=== PATIENT | female | born 1940 | race Two or more races ===

== ENCOUNTER 2022-10-10 15:14 | Inpatient (IN) | payer OTHER, BC ==
[~2022-10-10] VITALS: Ht 154.9 cm; Wt 59.9 kg
[2022-10-10 15:19] VITALS: BP_SYST 141; PULSE 82; RESP 19; TEMP 98; O2SAT 98
[2022-10-10 16:30] LABS: BASOPHILS % (AUTO) 0.6 % (0.0-2.0); EOSINOPHILS # (AUTO) 0.4 K/uL (0.0-0.4); EOSINOPHILS % (AUTO) 7.6 % (0.0-4.0); HEMATOCRIT 29.5 % (36-48); HEMOGLOBIN 9.4 g/dL (12.0-16.0); LYMPHOCYTES # (AUTO) 1.2 K/uL (1.0-5.5); LYMPHOCYTES % (AUTO) 24.8 % (20.5-51.5); MEAN CORPUSCULAR HEMOGLOBIN 26 pg (27-31); MEAN CORPUSCULAR HGB CONC 32 % (32-36); MEAN CORPUSCULAR VOLUME 81 fL (79.0-98.0); MONOCYTES # (AUTO) 0.7 K/uL (0.0-1.0); MONOCYTES % (AUTO) 13.6 % (1.7-9.3); NEUTROPHILS # (AUTO) 2.6 K/uL (1.8-7.7); NEUTROPHILS % (AUTO) 53.4 % (40.0-70.0); PLATELET COUNT (AUTO) 211 K/uL (130-430); RED BLOOD CELL COUNT(AUTO) 3.63 MIL/uL (4.2-6.2); RED CELL DISTRIBUTION WIDTH 16.3 % (9.0-15.0)
[2022-10-10] MEDS ORDERED: ACET-73 PO (16:32)
[2022-10-10] MEDS ORDERED: AMLO5TAB4 PO (16:32)
[2022-10-10] MEDS ORDERED: MULT-300 PO (16:32)
[2022-10-10] MEDS ORDERED: SENN8.6T19 PO (16:32)
[2022-10-10] MEDS ORDERED: LEVO150T8 PO (16:32)
[2022-10-10] MEDS ORDERED: MOM PO (16:32)
[2022-10-10] MEDS ORDERED: IRBE150T48 PO (16:32)
[2022-10-10] MEDS ORDERED: HYDR-3917 PO (16:32)
[2022-10-10] MEDS ORDERED: METO-442 PO (16:32)
[2022-10-10] MEDS ORDERED: POLY30DR11 EACH EYE (16:32)
[2022-10-10] MEDS ORDERED: NITSL SL (16:32)
[2022-10-10] MEDS ORDERED: FAMO20TA8 PO (16:32)
[2022-10-10] MEDS ORDERED: APIX2.5T PO (16:32)
[2022-10-10] MEDS ORDERED: ACET325T PO (16:32)
[2022-10-10] MEDS ORDERED: DOCU-144 PO (16:32)
[2022-10-10 17:04] LABS: INR 1.2 (0.8-1.2); PROTHROMBIN TIME 12.5 SECS (9.5-12.5)
[2022-10-10 17:19] LABS: ALANINE AMINOTRANSFERASE 22 U/L (12-78); ALBUMIN 2.9 g/dL (3.4-4.8); ANION GAP 5 (5-15); CALCIUM 11.8 mg/dL (8.4-11.0); CARBON DIOXIDE 27 mmol/L (23-29); CHLORIDE 100 mmol/L (98-107); CREATININE 1.24 mg/dL (0.55-1.30); GLUCOSE 111 mg/dL (74-106); SODIUM SERUM 132 mmol/L (136-145); TOTAL BILIRUBIN 0.4 mg/dL (0.0-1.0); TOTAL PROTEIN, SERUM 6.5 g/dL (6.4-8.3); UREA NITROGEN, BLOOD 24 mg/dL (8-21)
[2022-10-10 17:34] LABS: ASPARTATE AMINOTRANSFERASE 41 U/L (10-37)
[2022-10-10] MEDS ORDERED: NACL 0.9% 1,000 ML IV ONE (18:00)
[2022-10-10 18:53] LABS: BILIRUBIN,URINE NEGATIVE (NEGATIVE); BLOOD, URINE TRACE (NEGATIVE); CLARITY/URINE CLOUDY (CLEAR); COLOR,URINE YELLOW (YELLOW); GLUCOSE,URINE NEGATIVE (NEGATIVE); KETONES,URINE NEGATIVE (NEGATIVE); LEUKOCYTE ESTERASE ,URINE 3+ (NEGATIVE); PROTEIN URINE 2+ (NEGATIVE)
[2022-10-10 18:54] LABS: NITRITE, URINE POSITIVE (NEGATIVE); UROBILINOGEN,URINE 0.2 (0.2-1.0)
[2022-10-10 18:55] LABS: BACTERIA,URINE MANY /HPF (None Seen); MUCUS,URINE 1+ /LPF (None Seen); RBC,URINE 0-3 /HPF (0-3); WBC,URINE >100 /HPF (0-3)
[2022-10-10 18:56] LABS: URINE AMORPHOUS URATE 3+ /HPF (None Seen)
[2022-10-10] MEDS ORDERED: cefTRIAXone 1 GM IVPB PREMIX 50 ML IV ONE (19:00)
[2022-10-10] MEDS ORDERED: MAGNESIUM SULFATE 50 ML IV PRN (20:45)
[2022-10-10] MEDS ORDERED: LORazepam 2 MG/ML VIAL IVP PRN (20:45)
[2022-10-10] MEDS ORDERED: ACETAMINOPHEN 325 MG TABLET PO PRN (20:45)
[2022-10-10] MEDS ORDERED: DOCUSATE SODIUM 100 MG CAPSULE PO PRN (20:45)
[2022-10-10] MEDS ORDERED: MUPIROCIN 2% TOPICAL OINTMENT 22 GM NS PRN (20:45)
[2022-10-10] MEDS ORDERED: MORPHINE 2 MG/ML INJ. SYRINGE IVP PRN (20:45)
[2022-10-10] MEDS ORDERED: ZOLPIDEM TARTRATE 5 MG TABLET PO PRN (20:45)
[2022-10-10] MEDS ORDERED: POTASSIUM CHLORIDE 20 MEQ TAB.PRT.SR PO PRN (20:45)
[2022-10-10] MEDS ORDERED: ONDANSETRON HCL 4 MG/2 ML VIAL IVP PRN (20:45)
[2022-10-10] MEDS ORDERED: NALOXONE HCL 0.4 MG/ML AMP (NARCAN) IVP PRN ×2 (20:45)
[2022-10-10] MEDS ORDERED: IRBESARTAN 150 MG TABLET (AVAPRO) PO SCH (21:00)
[2022-10-10] MEDS: NACL 0.9% 1,000 ML IV SCH (21:16)
[2022-10-10] MEDS: LOSARTAN POTASSIUM 50 MG TABLET (COZAAR) PO SCH (21:17)
[2022-10-10] MEDS: METOPROLOL TARTRATE 50 MG TABLET PO SCH (21:18)
[2022-10-10] MEDS: APIXABAN 2.5 MG TABLET PO SCH (21:18)
[2022-10-11] VITALS (7 sets, daily range): BP systolic 134–181; PULSE 59–70; RESP 16–20; TEMP 97.2–99.2; O2SAT 96–100
[2022-10-11] MEDS: ACETAMINOPHEN 325 MG TABLET PO PRN (00:26)
[2022-10-11 06:54] LABS: BASOPHILS % (AUTO) 0.4 % (0.0-2.0); EOSINOPHILS # (AUTO) 0.3 K/uL (0.0-0.4); EOSINOPHILS % (AUTO) 5.2 % (0.0-4.0); HEMATOCRIT 30.4 % (36-48); HEMOGLOBIN 9.7 g/dL (12.0-16.0); LYMPHOCYTES # (AUTO) 0.6 K/uL (1.0-5.5); LYMPHOCYTES % (AUTO) 10.4 % (20.5-51.5); MEAN CORPUSCULAR HEMOGLOBIN 26 pg (27-31); MEAN CORPUSCULAR HGB CONC 32 % (32-36); MEAN CORPUSCULAR VOLUME 81 fL (79.0-98.0); MONOCYTES # (AUTO) 0.4 K/uL (0.0-1.0); MONOCYTES % (AUTO) 7.4 % (1.7-9.3); NEUTROPHILS # (AUTO) 4.4 K/uL (1.8-7.7); NEUTROPHILS % (AUTO) 76.6 % (40.0-70.0); PLATELET COUNT (AUTO) 187 K/uL (130-430); RED BLOOD CELL COUNT(AUTO) 3.74 MIL/uL (4.2-6.2); RED CELL DISTRIBUTION WIDTH 16.3 % (9.0-15.0); WHITE BLOOD COUNT (AUTO) 5.8 K/uL (4.8-10.8)
[2022-10-11] MEDS ORDERED: LEVOTHYROXINE SODIUM 0.15 MG TABLET PO SCH (07:00)
[2022-10-11 07:19] LABS: ANION GAP 7 (5-15); CALCIUM 11.1 mg/dL (8.4-11.0); CARBON DIOXIDE 26 mmol/L (23-29); CHLORIDE 104 mmol/L (98-107); CREATININE 1.16 mg/dL (0.55-1.30); GLUCOSE 101 mg/dL (74-106); SODIUM SERUM 137 mmol/L (136-145); UREA NITROGEN, BLOOD 21 mg/dL (8-21)
[2022-10-11] MEDS: amLODIPine BESYLATE 5 MG TABLET PO SCH (10:54)
[2022-10-11] MEDS: APIXABAN 2.5 MG TABLET PO SCH ×2 (10:55→21:12)
[2022-10-11] MEDS: NACL 0.9% 1,000 ML IV SCH ×2 (11:04→22:43)
[2022-10-11] MEDS: LOSARTAN POTASSIUM 50 MG TABLET (COZAAR) PO SCH (20:59)
[2022-10-11] MEDS ORDERED: cefTRIAXone 1 GM in D5W 50 ML IV SCH (21:00)
[2022-10-11] MEDS: METOPROLOL TARTRATE 50 MG TABLET PO SCH (21:00)
[2022-10-11] MEDS: MORPHINE 2 MG/ML INJ. SYRINGE IVP PRN (22:51)
[2022-10-12] VITALS (7 sets, daily range): BP systolic 124–168; PULSE 60–85; RESP 15–20; TEMP 97.9–99.1; O2SAT 95–100
[2022-10-12 06:53] LABS: BASOPHILS % (AUTO) 0.4 % (0.0-2.0); EOSINOPHILS # (AUTO) 0.4 K/uL (0.0-0.4); EOSINOPHILS % (AUTO) 9.7 % (0.0-4.0); HEMATOCRIT 31.2 % (36-48); HEMOGLOBIN 9.9 g/dL (12.0-16.0); LYMPHOCYTES # (AUTO) 0.9 K/uL (1.0-5.5); LYMPHOCYTES % (AUTO) 22.1 % (20.5-51.5); MEAN CORPUSCULAR HEMOGLOBIN 26 pg (27-31); MEAN CORPUSCULAR HGB CONC 32 % (32-36); MEAN CORPUSCULAR VOLUME 82 fL (79.0-98.0); MONOCYTES # (AUTO) 0.6 K/uL (0.0-1.0); MONOCYTES % (AUTO) 13.3 % (1.7-9.3); NEUTROPHILS # (AUTO) 2.3 K/uL (1.8-7.7); NEUTROPHILS % (AUTO) 54.5 % (40.0-70.0); PLATELET COUNT (AUTO) 183 K/uL (130-430); RED BLOOD CELL COUNT(AUTO) 3.81 MIL/uL (4.2-6.2); RED CELL DISTRIBUTION WIDTH 16.2 % (9.0-15.0); WHITE BLOOD COUNT (AUTO) 4.3 K/uL (4.8-10.8)
[2022-10-12 07:08] LABS: ANION GAP 6 (5-15); CALCIUM 10.8 mg/dL (8.4-11.0); CARBON DIOXIDE 28 mmol/L (23-29); CHLORIDE 103 mmol/L (98-107); CREATININE 0.96 mg/dL (0.55-1.30); GLUCOSE 94 mg/dL (74-106); POTASSIUM 3.5 mmol/L (3.5-5.1); SODIUM SERUM 137 mmol/L (136-145); UREA NITROGEN, BLOOD 13 mg/dL (8-21)
[2022-10-12] MEDS ORDERED: MAGNESIUM SULFATE 50 ML IV ONE ×2 (08:30→16:00)
[2022-10-12] MEDS ORDERED: LEVOTHYROXINE SODIUM 0.088 MG TABLET PO ONE (08:45)
[2022-10-12] MEDS: amLODIPine BESYLATE 5 MG TABLET PO SCH (10:32)
[2022-10-12] MEDS: NACL 0.9% 1,000 ML IV SCH (10:32)
[2022-10-12] MEDS: APIXABAN 2.5 MG TABLET PO SCH ×2 (10:38→21:20)
[2022-10-12] MEDS: MEROPENEM 1 GM in NS 100 ML IV SCH (17:45)
[2022-10-12] MEDS ORDERED: MEROPENEM 1 GM in NS 100 ML IV SCH (21:00)
[2022-10-12] MEDS: LOSARTAN POTASSIUM 50 MG TABLET (COZAAR) PO SCH (21:19)
[2022-10-12] MEDS: METOPROLOL TARTRATE 50 MG TABLET PO SCH (21:22)
[2022-10-12] MEDS: MORPHINE 2 MG/ML INJ. SYRINGE IVP PRN (21:26)
[2022-10-13 00:11] VITALS: BP_SYST 165; PULSE 64; RESP 16; TEMP 97.6; O2SAT 99
[2022-10-13] MEDS: NACL 0.9% 1,000 ML IV SCH ×2 (02:45→11:30)
[2022-10-13] MEDS: MEROPENEM 1 GM in NS 100 ML IV SCH ×2 (04:35→17:00)
[2022-10-13 05:10] LABS: BASOPHILS % (AUTO) 0.5 % (0.0-2.0); EOSINOPHILS # (AUTO) 0.3 K/uL (0.0-0.4); HEMATOCRIT 32.8 % (36-48); HEMOGLOBIN 10.7 g/dL (12.0-16.0); LYMPHOCYTES # (AUTO) 0.9 K/uL (1.0-5.5); LYMPHOCYTES % (AUTO) 16.5 % (20.5-51.5); MEAN CORPUSCULAR HEMOGLOBIN 26 pg (27-31); MEAN CORPUSCULAR HGB CONC 33 % (32-36); MEAN CORPUSCULAR VOLUME 80 fL (79.0-98.0); MONOCYTES # (AUTO) 0.6 K/uL (0.0-1.0); MONOCYTES % (AUTO) 10.3 % (1.7-9.3); NEUTROPHILS # (AUTO) 3.8 K/uL (1.8-7.7); NEUTROPHILS % (AUTO) 67.7 % (40.0-70.0); PLATELET COUNT (AUTO) 216 K/uL (130-430); RED BLOOD CELL COUNT(AUTO) 4.09 MIL/uL (4.2-6.2); RED CELL DISTRIBUTION WIDTH 16.1 % (9.0-15.0); WHITE BLOOD COUNT (AUTO) 5.6 K/uL (4.8-10.8)
[2022-10-13 05:41] LABS: ANION GAP 9 (5-15); CALCIUM 10.5 mg/dL (8.4-11.0); CARBON DIOXIDE 27 mmol/L (23-29); CHLORIDE 102 mmol/L (98-107); CREATININE 0.95 mg/dL (0.55-1.30); GLUCOSE 116 mg/dL (74-106); POTASSIUM 3.5 mmol/L (3.5-5.1); SODIUM SERUM 138 mmol/L (136-145); UREA NITROGEN, BLOOD 10 mg/dL (8-21)
[2022-10-13] MEDS: LEVOTHYROXINE SODIUM 0.088 MG TABLET PO SCH (06:41)
[2022-10-13 08:00] VITALS: BP_SYST 168; PULSE 72; RESP 16; TEMP 99.4; O2SAT 97
[2022-10-13] MEDS: amLODIPine BESYLATE 5 MG TABLET PO SCH (08:46)
[2022-10-13] MEDS: APIXABAN 2.5 MG TABLET PO SCH ×2 (08:47→20:29)
[2022-10-13] MEDS: ACETAMINOPHEN 325 MG TABLET PO PRN ×2 (09:35→16:18)
[2022-10-13] MEDS ORDERED: LEVO250T73 PO (10:47)
[2022-10-13 12:43] VITALS: BP_SYST 164; PULSE 70; RESP 18; TEMP 98.2; O2SAT 98
[2022-10-13 13:06] VITALS: BP_SYST 157; PULSE 69; RESP 16; TEMP 98; O2SAT 98
[2022-10-13] MEDS ORDERED: hydrALAZINE HCL 10 MG TABLET PO ONE (16:15)
[2022-10-13 16:50] VITALS: BP_SYST 156; PULSE 71; RESP 17; TEMP 99; O2SAT 97
[2022-10-13 19:00] VITALS: O2SAT 100
[2022-10-13] MEDS: METOPROLOL TARTRATE 50 MG TABLET PO SCH (20:27)
[2022-10-13] MEDS: LOSARTAN POTASSIUM 50 MG TABLET (COZAAR) PO SCH (20:28)
[2022-10-13] MEDS ORDERED: hydrALAZINE HCL 10 MG TABLET PO PRN (23:45)
[2022-10-14 00:32] VITALS: BP_SYST 154; PULSE 71; RESP 16; TEMP 98.3; O2SAT 99
[2022-10-14] MEDS: NACL 0.9% 1,000 ML IV SCH ×2 (02:02→12:30)
[2022-10-14] MEDS: MEROPENEM 1 GM in NS 100 ML IV SCH (04:59)
[2022-10-14] MEDS: LEVOTHYROXINE SODIUM 0.088 MG TABLET PO SCH (06:06)
[2022-10-14 06:18] LABS: BASOPHILS % (AUTO) 0.6 % (0.0-2.0); EOSINOPHILS # (AUTO) 0.5 K/uL (0.0-0.4); EOSINOPHILS % (AUTO) 9.2 % (0.0-4.0); HEMATOCRIT 30.1 % (36-48); HEMOGLOBIN 9.9 g/dL (12.0-16.0); LYMPHOCYTES # (AUTO) 1.2 K/uL (1.0-5.5); LYMPHOCYTES % (AUTO) 24.7 % (20.5-51.5); MEAN CORPUSCULAR HEMOGLOBIN 27 pg (27-31); MEAN CORPUSCULAR HGB CONC 33 % (32-36); MEAN CORPUSCULAR VOLUME 81 fL (79.0-98.0); MONOCYTES # (AUTO) 0.6 K/uL (0.0-1.0); MONOCYTES % (AUTO) 12.3 % (1.7-9.3); NEUTROPHILS # (AUTO) 2.6 K/uL (1.8-7.7); NEUTROPHILS % (AUTO) 53.2 % (40.0-70.0); PLATELET COUNT (AUTO) 204 K/uL (130-430); RED CELL DISTRIBUTION WIDTH 15.9 % (9.0-15.0)
[2022-10-14 06:41] LABS: ANION GAP 8 (5-15); CALCIUM 10.8 mg/dL (8.4-11.0); CARBON DIOXIDE 26 mmol/L (23-29); CHLORIDE 104 mmol/L (98-107); GLUCOSE 97 mg/dL (74-106); POTASSIUM 3.4 mmol/L (3.5-5.1); SODIUM SERUM 138 mmol/L (136-145); UREA NITROGEN, BLOOD 14 mg/dL (8-21)
[2022-10-14 08:00] VITALS: BP_SYST 178; PULSE 61; RESP 17; TEMP 98.4; O2SAT 99
[2022-10-14] MEDS: APIXABAN 2.5 MG TABLET PO SCH (08:57)
[2022-10-14] MEDS ORDERED: amLODIPine BESYLATE 5 MG TABLET PO SCH (09:00)
[2022-10-14 11:07] VITALS: O2SAT 97
[2022-10-14 12:00] VITALS: BP_SYST 136; PULSE 81; RESP 18; TEMP 98.1; O2SAT 96
[2022-10-14 12:43] VITALS: BP_SYST 136; PULSE 81; RESP 18; TEMP 98.1; O2SAT 96
== END 2022-10-14 15:00 | DRG 640 ==
LOC: SED 15:14 → SMU 19:22
PROVIDERS: ADMIT General Practice; ATTEND General Practice
DX: E87.1 Hypo-osmolality and hyponatremia (principal); G93.41 Metabolic encephalopathy; N39.0 Urinary tract infection, site not specified; E44.0 Moderate protein-calorie malnutrition; G30.9 Alzheimer's disease, unspecified; F02.80 Dementia in other diseases classified elsewhere, unspecified severity, without behavioral disturbance, psychotic disturbance, mood disturbance, and anxiety; I10 Essential (primary) hypertension; K21.9 Gastro-esophageal reflux disease without esophagitis; D63.8 Anemia in other chronic diseases classified elsewhere; G89.29 Other chronic pain; E83.52 Hypercalcemia; E78.5 Hyperlipidemia, unspecified; E03.9 Hypothyroidism, unspecified; B96.20 Unspecified Escherichia coli [E. coli] as the cause of diseases classified elsewhere; Z88.8 Allergy status to other drugs, medicaments and biological substances; E83.42 Hypomagnesemia; Z91.041 Radiographic dye allergy status; Z79.899 Other long term (current) drug therapy; Z95.0 Presence of cardiac pacemaker; Z68.24 Body mass index [BMI] 24.0-24.9, adult; Z79.1 Long term (current) use of non-steroidal anti-inflammatories (NSAID)
CPT/HCPCS: 36415; 70450-TC; 71045; 76376; 76770; 80048; 80053; 81000; 83037; 83605; 83735; 84443; 84484; 85025; 85610-TC; 85730-TC; 87081; 87086; 93005; 97110-GP; 97116-GP; 97530-GP; 99285; J0696; J2185; J2270; J3475; J7030; J7060

== ENCOUNTER 2022-11-22 20:59 | Inpatient (IN) | payer OTHER, BC ==
[~2022-11-22] VITALS: Ht 157.5 cm; Wt 56.2 kg
[~2022-11-22 20:59] MED LIST: AMLO5TAB4 PO; APIX2.5T PO; DOCU-144 PO; FAMO20TA8 PO; LEVO125T PO; LINE600T12 PO; METO-442 PO; MULT400T13 PO; SENN-153 PO
[2022-11-22 21:11] VITALS: BP_SYST 134; PULSE 61; RESP 18; TEMP 97.6; O2SAT 99
[2022-11-22] MEDS ORDERED: cefTRIAXone 1 GM IVPB PREMIX 50 ML IV ONE (21:30)
[2022-11-22 22:19] LABS: BASOPHILS % (AUTO) 0.6 % (0.0-2.0); EOSINOPHILS # (AUTO) 0.3 K/uL (0.0-0.4); EOSINOPHILS % (AUTO) 4.6 % (0.0-4.0); HEMATOCRIT 33.1 % (36-48); LYMPHOCYTES # (AUTO) 1.9 K/uL (1.0-5.5); LYMPHOCYTES % (AUTO) 25.7 % (20.5-51.5); MEAN CORPUSCULAR HEMOGLOBIN 27 pg (27-31); MEAN CORPUSCULAR HGB CONC 33 % (32-36); MEAN CORPUSCULAR VOLUME 80 fL (79.0-98.0); MONOCYTES # (AUTO) 0.8 K/uL (0.0-1.0); MONOCYTES % (AUTO) 11.6 % (1.7-9.3); NEUTROPHILS # (AUTO) 4.2 K/uL (1.8-7.7); NEUTROPHILS % (AUTO) 57.5 % (40.0-70.0); PLATELET COUNT (AUTO) 252 K/uL (130-430); RED BLOOD CELL COUNT(AUTO) 4.13 MIL/uL (4.2-6.2); RED CELL DISTRIBUTION WIDTH 17.3 % (9.0-15.0); WHITE BLOOD COUNT (AUTO) 7.3 K/uL (4.8-10.8)
[2022-11-22 22:24] LABS: ANION GAP 6 (5-15); CALCIUM 11.6 mg/dL (8.4-11.0); CARBON DIOXIDE 26 mmol/L (23-29); CHLORIDE 104 mmol/L (98-107); CREATININE 1.81 mg/dL (0.55-1.30); GLUCOSE 106 mg/dL (74-106); POTASSIUM 3.7 mmol/L (3.5-5.1); SODIUM SERUM 136 mmol/L (136-145); UREA NITROGEN, BLOOD 23 mg/dL (8-21)
[2022-11-22 22:31] LABS: ALANINE AMINOTRANSFERASE 20 U/L (12-78); ALBUMIN 3.3 g/dL (3.4-4.8); ASPARTATE AMINOTRANSFERASE 27 U/L (10-37); TOTAL BILIRUBIN 0.6 mg/dL (0.0-1.0); TOTAL PROTEIN, SERUM 7.4 g/dL (6.4-8.3)
[2022-11-22 22:59] LABS: FREE T4 (FREE THYROXINE) 1.8 ng/dL (0.6-1.6); THYROID STIMULATING HORMONE 0.09 uIu/mL (0.34-4.82)
[2022-11-22] MEDS ORDERED: NACL 0.9% 1,000 ML IV ONE ×3 (23:15→23:45)
[2022-11-22] MEDS ORDERED: LINEZOLID 600 MG TABLET PO ONE (23:15)
[2022-11-22] MEDS ORDERED: LINEZOLID 600 MG TABLET ONE (23:28)
[2022-11-22 23:29] LABS: INFLUENZA TYPE A Negative (NEGATIVE); INFLUENZA TYPE B NEGATIVE (NEGATIVE)
[2022-11-22 23:46] LABS: BILIRUBIN,URINE NEGATIVE (NEGATIVE); BLOOD, URINE 2+ (NEGATIVE); CLARITY/URINE CLOUDY (CLEAR); COLOR,URINE YELLOW (YELLOW); GLUCOSE,URINE NEGATIVE (NEGATIVE); KETONES,URINE NEGATIVE (NEGATIVE); LEUKOCYTE ESTERASE ,URINE 3+ (NEGATIVE); NITRITE, URINE POSITIVE (NEGATIVE); PH,URINE 6.5 (5.0-8.0); PROTEIN URINE 2+ (NEGATIVE); UROBILINOGEN,URINE 0.2 (0.2-1.0)
[2022-11-23 00:20] LABS: BACTERIA,URINE MANY /HPF (None Seen); WBC,URINE >100 /HPF (0-3)
[2022-11-23 01:21] VITALS: BP_SYST 137; PULSE 67; RESP 19; TEMP 99.3; O2SAT 100
[2022-11-23 07:17] LABS: BASOPHILS % (AUTO) 0.1 % (0.0-2.0); EOSINOPHILS # (AUTO) 0.2 K/uL (0.0-0.4); EOSINOPHILS % (AUTO) 1.7 % (0.0-4.0); HEMATOCRIT 31.8 % (36-48); HEMOGLOBIN 10.4 g/dL (12.0-16.0); LYMPHOCYTES # (AUTO) 0.3 K/uL (1.0-5.5); LYMPHOCYTES % (AUTO) 2.3 % (20.5-51.5); MEAN CORPUSCULAR HEMOGLOBIN 26 pg (27-31); MEAN CORPUSCULAR HGB CONC 33 % (32-36); MEAN CORPUSCULAR VOLUME 81 fL (79.0-98.0); MONOCYTES # (AUTO) 0.5 K/uL (0.0-1.0); MONOCYTES % (AUTO) 4.1 % (1.7-9.3); NEUTROPHILS # (AUTO) 10.4 K/uL (1.8-7.7); NEUTROPHILS % (AUTO) 91.8 % (40.0-70.0); PLATELET COUNT (AUTO) 198 K/uL (130-430); RED BLOOD CELL COUNT(AUTO) 3.94 MIL/uL (4.2-6.2); RED CELL DISTRIBUTION WIDTH 17.1 % (9.0-15.0); WHITE BLOOD COUNT (AUTO) 11.3 K/uL (4.8-10.8)
[2022-11-23 07:37] LABS: ALANINE AMINOTRANSFERASE 18 U/L (12-78); ALBUMIN 2.9 g/dL (3.4-4.8); ANION GAP 10 (5-15); ASPARTATE AMINOTRANSFERASE 27 U/L (10-37); CALCIUM 10.7 mg/dL (8.4-11.0); CARBON DIOXIDE 22 mmol/L (23-29); CHLORIDE 107 mmol/L (98-107); CREATININE 1.57 mg/dL (0.55-1.30); GLUCOSE 116 mg/dL (74-106); POTASSIUM 3.6 mmol/L (3.5-5.1); SODIUM SERUM 139 mmol/L (136-145); TOTAL BILIRUBIN 0.5 mg/dL (0.0-1.0); TOTAL PROTEIN, SERUM 6.5 g/dL (6.4-8.3); UREA NITROGEN, BLOOD 21 mg/dL (8-21)
[2022-11-23] MEDS ORDERED: LORazepam 2 MG/ML VIAL IVP PRN (08:30)
[2022-11-23] MEDS ORDERED: NALOXONE HCL 0.4 MG/ML AMP (NARCAN) IVP PRN ×2 (08:30)
[2022-11-23] MEDS ORDERED: MORPHINE 2 MG/ML INJ. SYRINGE IVP PRN ×2 (08:30)
[2022-11-23] MEDS ORDERED: ZOLPIDEM TARTRATE 5 MG TABLET PO PRN (08:30)
[2022-11-23] MEDS ORDERED: MUPIROCIN 2% TOPICAL OINTMENT 22 GM NS PRN (08:30)
[2022-11-23] MEDS ORDERED: ONDANSETRON HCL 4 MG/2 ML VIAL IVP PRN (08:30)
[2022-11-23] MEDS ORDERED: ACETAMINOPHEN 325 MG TABLET PO PRN ×2 (08:30)
[2022-11-23] MEDS ORDERED: POTASSIUM CHLORIDE 20 MEQ TAB.PRT.SR PO PRN (08:30)
[2022-11-23] MEDS ORDERED: DOCUSATE SODIUM 100 MG CAPSULE PO PRN (08:30)
[2022-11-23] MEDS ORDERED: MAGNESIUM SULFATE 50 ML IV PRN (08:30)
[2022-11-23 09:30] VITALS: BP_SYST 136; PULSE 71; RESP 18; TEMP 98.6; O2SAT 98
[2022-11-23] MEDS: VANCOMYCIN HCL 500 MG in NS 100 ML IV SCH (10:12)
[2022-11-23] MEDS: METOPROLOL TARTRATE 50 MG TABLET PO SCH ×2 (10:12→21:42)
[2022-11-23] MEDS: amLODIPine BESYLATE 5 MG TABLET PO SCH ×2 (10:13→21:41)
[2022-11-23] MEDS: APIXABAN 2.5 MG TABLET PO SCH ×2 (10:16→21:44)
[2022-11-23 12:00] VITALS: BP_SYST 159; PULSE 63; RESP 18; TEMP 99.1; O2SAT 99
[2022-11-23 16:00] VITALS: BP_SYST 164; PULSE 65; RESP 18; TEMP 99; O2SAT 96
[2022-11-23 20:00] VITALS: BP_SYST 151; PULSE 72; RESP 18; TEMP 98.4; O2SAT 99
[2022-11-24] VITALS: BP_SYST 138; PULSE 70; RESP 19; TEMP 98.9; O2SAT 98
[2022-11-24 03:22] VITALS: O2SAT 99
[2022-11-24 04:51] LABS: BASOPHILS % (AUTO) 0.4 % (0.0-2.0); EOSINOPHILS # (AUTO) 0.5 K/uL (0.0-0.4); HEMATOCRIT 31.1 % (36-48); HEMOGLOBIN 10.1 g/dL (12.0-16.0); LYMPHOCYTES # (AUTO) 1.1 K/uL (1.0-5.5); LYMPHOCYTES % (AUTO) 14.5 % (20.5-51.5); MEAN CORPUSCULAR HEMOGLOBIN 26 pg (27-31); MEAN CORPUSCULAR HGB CONC 33 % (32-36); MEAN CORPUSCULAR VOLUME 81 fL (79.0-98.0); MONOCYTES # (AUTO) 0.8 K/uL (0.0-1.0); MONOCYTES % (AUTO) 10.4 % (1.7-9.3); NEUTROPHILS # (AUTO) 5.2 K/uL (1.8-7.7); NEUTROPHILS % (AUTO) 68.7 % (40.0-70.0); PLATELET COUNT (AUTO) 199 K/uL (130-430); RED BLOOD CELL COUNT(AUTO) 3.83 MIL/uL (4.2-6.2); RED CELL DISTRIBUTION WIDTH 17.6 % (9.0-15.0); WHITE BLOOD COUNT (AUTO) 7.6 K/uL (4.8-10.8)
[2022-11-24 05:03] LABS: ANION GAP 8 (5-15); CALCIUM 10.2 mg/dL (8.4-11.0); CARBON DIOXIDE 25 mmol/L (23-29); CHLORIDE 110 mmol/L (98-107); CREATININE 1.33 mg/dL (0.55-1.30); GLUCOSE 114 mg/dL (74-106); POTASSIUM 3.4 mmol/L (3.5-5.1); SODIUM SERUM 143 mmol/L (136-145); UREA NITROGEN, BLOOD 18 mg/dL (8-21)
[2022-11-24] MEDS: LEVOTHYROXINE SODIUM 0.125 MG TABLET PO SCH (06:23)
[2022-11-24 08:00] VITALS: BP_SYST 157; PULSE 83; RESP 18; TEMP 97.2; O2SAT 96
[2022-11-24] MEDS: METOPROLOL TARTRATE 50 MG TABLET PO SCH ×2 (09:00→20:47)
[2022-11-24] MEDS: APIXABAN 2.5 MG TABLET PO SCH ×2 (09:00→20:49)
[2022-11-24] MEDS: amLODIPine BESYLATE 5 MG TABLET PO SCH ×2 (09:01→20:47)
[2022-11-24 12:00] VITALS: BP_SYST 163; PULSE 76; RESP 18; TEMP 97.7; O2SAT 96
[2022-11-24] MEDS: VANCOMYCIN HCL 500 MG in NS 100 ML IV SCH (12:11)
[2022-11-24 16:00] VITALS: BP_SYST 150; PULSE 65; RESP 18; TEMP 98; O2SAT 98
[2022-11-24] MEDS ORDERED: POTASSIUM CHLORIDE 20 MEQ TAB.PRT.SR PO ONE (17:45)
[2022-11-24 20:00] VITALS: BP_SYST 147; PULSE 66; RESP 19; TEMP 98.9; O2SAT 99
[2022-11-25 00:08] VITALS: BP_SYST 148; PULSE 65; RESP 18; TEMP 98; O2SAT 98
[2022-11-25 01:13] VITALS: O2SAT 99
[2022-11-25] MEDS: LEVOTHYROXINE SODIUM 0.125 MG TABLET PO SCH (06:11)
[2022-11-25 06:33] LABS: BASOPHILS % (AUTO) 0.4 % (0.0-2.0); EOSINOPHILS # (AUTO) 0.2 K/uL (0.0-0.4); EOSINOPHILS % (AUTO) 3.5 % (0.0-4.0); HEMATOCRIT 33.1 % (36-48); LYMPHOCYTES # (AUTO) 1.4 K/uL (1.0-5.5); LYMPHOCYTES % (AUTO) 26.4 % (20.5-51.5); MEAN CORPUSCULAR HEMOGLOBIN 27 pg (27-31); MEAN CORPUSCULAR HGB CONC 33 % (32-36); MEAN CORPUSCULAR VOLUME 80 fL (79.0-98.0); MONOCYTES # (AUTO) 0.6 K/uL (0.0-1.0); MONOCYTES % (AUTO) 11.2 % (1.7-9.3); NEUTROPHILS # (AUTO) 3.2 K/uL (1.8-7.7); NEUTROPHILS % (AUTO) 58.5 % (40.0-70.0); PLATELET COUNT (AUTO) 206 K/uL (130-430); RED BLOOD CELL COUNT(AUTO) 4.14 MIL/uL (4.2-6.2); RED CELL DISTRIBUTION WIDTH 17.6 % (9.0-15.0); WHITE BLOOD COUNT (AUTO) 5.4 K/uL (4.8-10.8)
[2022-11-25 07:01] LABS: ANION GAP 8 (5-15); CALCIUM 10.3 mg/dL (8.4-11.0); CARBON DIOXIDE 25 mmol/L (23-29); CHLORIDE 111 mmol/L (98-107); CREATININE 1.26 mg/dL (0.55-1.30); GLUCOSE 100 mg/dL (74-106); POTASSIUM 3.5 mmol/L (3.5-5.1); SODIUM SERUM 144 mmol/L (136-145); UREA NITROGEN, BLOOD 21 mg/dL (8-21)
[2022-11-25 08:00] VITALS: BP_SYST 143; PULSE 61; RESP 18; TEMP 98; O2SAT 96; O2SAT 98
[2022-11-25] MEDS: METOPROLOL TARTRATE 50 MG TABLET PO SCH ×2 (08:49→20:09)
[2022-11-25] MEDS: APIXABAN 2.5 MG TABLET PO SCH ×2 (08:50→20:13)
[2022-11-25] MEDS: amLODIPine BESYLATE 5 MG TABLET PO SCH ×2 (08:51→20:10)
[2022-11-25 12:26] VITALS: BP_SYST 145; PULSE 64; RESP 19; TEMP 98.4; O2SAT 98
[2022-11-25] MEDS ORDERED: VANCOMYCIN HCL 750 MG in NS 250 ML IV SCH (13:00)
[2022-11-25 16:41] VITALS: BP_SYST 144; PULSE 63; RESP 18; TEMP 98.2; O2SAT 97
[2022-11-25 20:00] VITALS: BP_SYST 161; PULSE 74; RESP 18; TEMP 97.8; O2SAT 96
[2022-11-26] VITALS: BP_SYST 158; PULSE 60; RESP 18; TEMP 98.3; O2SAT 99
[2022-11-26 04:59] VITALS: BP_SYST 158; PULSE 76
[2022-11-26 05:52] LABS: BASOPHILS % (AUTO) 0.3 % (0.0-2.0); EOSINOPHILS # (AUTO) 0.3 K/uL (0.0-0.4); EOSINOPHILS % (AUTO) 4.4 % (0.0-4.0); HEMATOCRIT 34.9 % (36-48); HEMOGLOBIN 11.3 g/dL (12.0-16.0); LYMPHOCYTES # (AUTO) 1.7 K/uL (1.0-5.5); MEAN CORPUSCULAR HEMOGLOBIN 26 pg (27-31); MEAN CORPUSCULAR HGB CONC 32 % (32-36); MEAN CORPUSCULAR VOLUME 81 fL (79.0-98.0); MONOCYTES # (AUTO) 0.5 K/uL (0.0-1.0); MONOCYTES % (AUTO) 7.5 % (1.7-9.3); NEUTROPHILS # (AUTO) 4.1 K/uL (1.8-7.7); NEUTROPHILS % (AUTO) 61.8 % (40.0-70.0); PLATELET COUNT (AUTO) 225 K/uL (130-430); RED CELL DISTRIBUTION WIDTH 17.4 % (9.0-15.0); WHITE BLOOD COUNT (AUTO) 6.7 K/uL (4.8-10.8)
[2022-11-26 06:01] LABS: ANION GAP 8 (5-15); CALCIUM 10.4 mg/dL (8.4-11.0); CARBON DIOXIDE 26 mmol/L (23-29); CHLORIDE 108 mmol/L (98-107); CREATININE 1.11 mg/dL (0.55-1.30); GLUCOSE 102 mg/dL (74-106); POTASSIUM 3.3 mmol/L (3.5-5.1); SODIUM SERUM 142 mmol/L (136-145); UREA NITROGEN, BLOOD 20 mg/dL (8-21)
[2022-11-26] MEDS: LEVOTHYROXINE SODIUM 0.125 MG TABLET PO SCH (06:07)
[2022-11-26 08:32] VITALS: BP_SYST 163; PULSE 84; RESP 18; TEMP 97.3; O2SAT 97
[2022-11-26] MEDS: amLODIPine BESYLATE 5 MG TABLET PO SCH (08:46)
[2022-11-26] MEDS: METOPROLOL TARTRATE 50 MG TABLET PO SCH (08:46)
[2022-11-26] MEDS: APIXABAN 2.5 MG TABLET PO SCH (08:53)
[2022-11-26 10:37] VITALS: O2SAT 2
[2022-11-26 11:30] VITALS: BP_SYST 137; PULSE 59; RESP 18; TEMP 98.8; O2SAT 98
[2022-11-26 13:34] VITALS: BP_SYST 163; PULSE 84; RESP 15; TEMP 97.3; O2SAT 97
== END 2022-11-26 15:20 | DRG 871 ==
LOC: SED 20:59 → SMU 23:31
PROVIDERS: ADMIT General Practice; ATTEND General Practice
DX: A41.9 Sepsis, unspecified organism (principal); G93.41 Metabolic encephalopathy; N17.0 Acute kidney failure with tubular necrosis; N39.0 Urinary tract infection, site not specified; E44.1 Mild protein-calorie malnutrition; F02.80 Dementia in other diseases classified elsewhere, unspecified severity, without behavioral disturbance, psychotic disturbance, mood disturbance, and anxiety; E83.52 Hypercalcemia; E03.9 Hypothyroidism, unspecified; I10 Essential (primary) hypertension; I25.10 Atherosclerotic heart disease of native coronary artery without angina pectoris; G30.9 Alzheimer's disease, unspecified; K21.9 Gastro-esophageal reflux disease without esophagitis; E78.5 Hyperlipidemia, unspecified; Z20.822 Contact with and (suspected) exposure to COVID-19; Z88.8 Allergy status to other drugs, medicaments and biological substances; Z91.041 Radiographic dye allergy status; Z79.899 Other long term (current) drug therapy; Z87.440 Personal history of urinary (tract) infections; Z95.1 Presence of aortocoronary bypass graft; Z90.49 Acquired absence of other specified parts of digestive tract; Z68.22 Body mass index [BMI] 22.0-22.9, adult
CPT/HCPCS: 36415; 70450-TC; 71045; 76376; 80048; 80053; 80202; 81000; 83037; 83605; 83735; 84439; 84443; 84484; 85025; 87040; 87086; 93005; 96361; 96365; 97110-GP; 97530-GP; 99285; J0696; J1956; J3370; J7050